=== PATIENT | male | born 1985 | race Caucasian/White ===

== ENCOUNTER 2017-08-23 12:27 | Emergency (ER) | payer SELFPAY ==
[~2017-08-23] VITALS: Ht 180.3 cm; Wt 112.9 kg
[~2017-08-23 12:27] MED LIST: ESOM40CA PO; HYDR-3326 PO
--- NOTE | 2017-08-23 12:42 | NUR ---
PT. A/A/O NO S/SOF DISTRESS ,DENIES ANYPAIN,C/O ON ITCHING OF LEFT UPPER ARM/SIDE RED/PINK HOT IN TOUCH .PT.WAS SEEN BY .
[2017-08-23 12:45] VITALS: BP 126/78
== END 2017-08-23 12:52 | disposition home or self-care (01) ==
LOC: ER 12:27
DX: L03.114 Cellulitis of left upper limb (principal); F17.200 Nicotine dependence, unspecified, uncomplicated
CPT/HCPCS: 99283; A4663

== ENCOUNTER 2017-11-07 21:35 | Emergency (ER) | payer SELFPAY ==
[~2017-11-07] VITALS: Ht 180.3 cm; Wt 117.5 kg
[2017-11-07] MEDS ORDERED: ATEN25TA PO (21:46)
[2017-11-07 22:27] LABS: BASOPHILS % (AUTO) 0.5 % (0.0-2.0); EOSINOPHILS # (AUTO) 0.2 K/uL (0.0-0.7); HEMATOCRIT 42.6 % (36.7-47.1); HEMOGLOBIN 14.3 g/dL (12.5-16.3); MEAN CORPUSCULAR HEMOGLOBIN 26.4 uug (23.8-33.4); MEAN CORPUSCULAR HGB CONC 34 g/dL (32.5-36.3); MEAN CORPUSCULAR VOLUME 78.9 fL (73.0-96.2); MONOCYTES # (AUTO) 0.6 K/uL (2.0-10.0); NEUTROPHILS # (AUTO) 5.2 K/uL (1.8-8.9); NEUTROPHILS % (AUTO) 57.5 % (38.5-71.5); PLATELET COUNT (AUTO) 229 K/uL (152-348)
[2017-11-07 22:34] LABS: CREATININE 1.2 mg/dL (0.6-1.3)
--- NOTE | 2017-11-07 23:37 | NUR ---
Patient discharged to home in stable conditon. Written and verbal after care instructions given. Patient verbalizes understanding of instructions.
== END 2017-11-07 23:38 | disposition home or self-care (01) ==
LOC: ER 21:36
DX: R07.9 Chest pain, unspecified (principal); K21.9 Gastro-esophageal reflux disease without esophagitis; K44.9 Diaphragmatic hernia without obstruction or gangrene; I10 Essential (primary) hypertension; F17.200 Nicotine dependence, unspecified, uncomplicated
CPT/HCPCS: 36415; 70030-TC; 71045; 85025; 85730; 93005; A4663

== ENCOUNTER 2022-06-18 14:36 | Emergency (ER) | payer BC, MEDICAID ==
[~2022-06-18] VITALS: Ht 180.3 cm; Wt 131.5 kg
[~2022-06-18 14:36] MED LIST changes: +ATEN25TA PO
[2022-06-18] MEDS ORDERED: IBUPROFEN 800 MG TABLET PO ONE (15:00)
[2022-06-18 15:13] LABS: HEMATOCRIT 41.7 % (36.7-47.1); MEAN CORPUSCULAR VOLUME 79.8 fL (73.0-96.2); PLATELET COUNT (AUTO) 209 K/uL (152-348)
[2022-06-18] MEDS ORDERED: IBUPROFEN 800 MG TABLET ONE (15:16)
[2022-06-18 15:20] LABS: CARBON DIOXIDE 27 mmol/L (21-32); CHLORIDE 99 mmol/L (98-107); CREATININE 1.3 mg/dL (0.6-1.3); GLUCOSE 139 mg/dL (74-106); POTASSIUM 3.6 mmol/L (3.5-5.1); UREA NITROGEN, BLOOD 13 mg/dL (7-18)
[2022-06-18 15:33] LABS: ALANINE AMINOTRANSFERASE 68 U/L (16-63); ALKALINE PHOSPHATASE 88 U/L (50-136); ASPARTATE AMINOTRANSFERASE 18 U/L (15-37); BILIRUBIN,DIRECT 0.1 mg/dL (0.0-0.2); BILIRUBIN,TOTAL 0.8 mg/dL (0.2-1.0); TOTAL PROTEIN, SERUM 8.5 g/dL (6.4-8.2)
== END 2022-06-18 16:28 | disposition home or self-care (01) ==
LOC: ER 14:37
DX: B34.9 Viral infection, unspecified (principal); Z20.822 Contact with and (suspected) exposure to COVID-19; D72.829 Elevated white blood cell count, unspecified; I10 Essential (primary) hypertension
CPT/HCPCS: 36415; 71045; 84484; 85025; 93005; A4663

== ENCOUNTER 2022-10-15 23:31 | Emergency (ER) | payer MEDICAID ==
[~2022-10-15] VITALS: Ht 185.4 cm; Wt 131.5 kg
--- NOTE | 2022-10-15 23:44 | NUR ---
Patient ambulated into room #4a, informed of plan of care awaiting md exam. No s/s of any distress noted, c/o generalized pimple break on back and abd area x 2 days.
--- NOTE | 2022-10-15 23:55 | NUR ---
at bedside for exam.
[2022-10-16] MEDS ORDERED: HYDR28.461 TP (00:05)
[2022-10-16] MEDS ORDERED: DOXY100C5 PO (00:05)
[2022-10-16 00:41] VITALS: BP 141/91
== END 2022-10-16 00:41 | disposition home or self-care (01) ==
LOC: ER 23:50
DX: R21 Rash and other nonspecific skin eruption (principal); F17.210 Nicotine dependence, cigarettes, uncomplicated; I10 Essential (primary) hypertension
CPT/HCPCS: A4663

== ENCOUNTER 2023-05-16 12:12 | Emergency (ER) | payer BC, MEDICAID ==
[~2023-05-16] VITALS: Ht 185.4 cm; Wt 131.5 kg
[~2023-05-16 12:12] MED LIST changes: +DOXY100C5 PO; +HYDR28.461 TP
[2023-05-16 12:52] LABS: BASOPHILS # (AUTO) 0.5 K/UL (0.0-0.2); EOSINOPHILS # (AUTO) 0.2 K/uL (0.0-0.7); HEMATOCRIT 44.2 % (36.7-47.1); HEMOGLOBIN 14.5 g/dL (12.5-16.3); LYMPHOCYTES # (AUTO) 1.2 K/uL (0.8-4.8); LYMPHOCYTES % (AUTO) 13.6 % (20.5-51.5); MEAN CORPUSCULAR HEMOGLOBIN 25.9 uug (23.8-33.4); MEAN CORPUSCULAR HGB CONC 33 g/dL (32.5-36.3); MEAN CORPUSCULAR VOLUME 78.8 fL (73.0-96.2); MONOCYTES # (AUTO) 0.2 K/uL (0.1-1.30); MONOCYTES % (AUTO) 2.7 % (0.0-11.0); NEUTROPHILS # (AUTO) 6.6 K/uL (1.8-8.9); NEUTROPHILS % (AUTO) 76.5 % (38.5-71.5); PLATELET COUNT (AUTO) 235 K/uL (152-348); RED BLOOD CELL COUNT(AUTO) 5.61 MIL/uL (4.06-5.63); RED CELL DISTRIBUTION WIDTH 14.1 % (12.1-16.2); WHITE BLOOD COUNT (AUTO) 8.7 K/uL (3.6-10.2)
[2023-05-16] MEDS: IV NORMAL SALINE 1000 ML BAG IV ONE (12:52)
[2023-05-16 13:01] LABS: CALCIUM 9.1 mg/dL (8.5-10.1); CARBON DIOXIDE 28 mmol/L (21-32); CHLORIDE 104 mmol/L (98-107); CREATININE 1.2 mg/dL (0.6-1.3); GLUCOSE 143 mg/dL (74-106); POTASSIUM 3.7 mmol/L (3.5-5.1); SODIUM SERUM 141 mmol/L (136-145); UREA NITROGEN, BLOOD 16 mg/dL (7-18)
[2023-05-16 13:13] LABS: ALANINE AMINOTRANSFERASE 71 U/L (16-63); ALKALINE PHOSPHATASE 100 U/L (50-136); ASPARTATE AMINOTRANSFERASE 24 U/L (15-37); BILIRUBIN,DIRECT 0.1 mg/dL (0.0-0.2); BILIRUBIN,TOTAL 0.4 mg/dL (0.2-1.0); TOTAL PROTEIN, SERUM 8.2 g/dL (6.4-8.2)
[2023-05-16 13:20] LABS: BASOPHILS % (AUTO) > 4.0 % (0.0-2.0); DIFFERENTIAL COMMENT 1
[2023-05-16 14:14] LABS: THYROID STIMULATING HORMONE 1.609 mIU/mL (0.358-3.740)
[2023-05-16 14:47] VITALS: BP 111/81; O2SAT 97
[2023-05-16 15:03] LABS: BAND % (MANUAL) 3 % (0-10)
[2023-05-16 15:04] LABS: BASOPHILS % (MANUAL) 3 % (0-2); EOSINOPHILS % (MANUAL) 2 % (0-8); LYMPHOCYTES % (MANUAL) 15 % (20-40); MONOCYTES % (MANUAL) 2 % (2-10)
[2023-05-16 15:05] LABS: NEUTROPHILS % (MANUAL) 75 % (42-75); PLATELET ESTIMATE ADEQUATE
== END 2023-05-16 14:48 | disposition home or self-care (01) ==
LOC: ER 12:12
DX: R53.83 Other fatigue (principal); R07.89 Other chest pain; K21.9 Gastro-esophageal reflux disease without esophagitis; F17.210 Nicotine dependence, cigarettes, uncomplicated; Z79.2 Long term (current) use of antibiotics; Z79.899 Other long term (current) drug therapy; Z20.822 Contact with and (suspected) exposure to COVID-19
CPT/HCPCS: 99285; 96360; 71045; 87426; 80076; 80048; 83880; 84443; 85025; 84484; 36415; 93005; 85007; J7040; 70030-TC; A4663